=== PATIENT | female | born 1980 | race American Indian/Alaskan Native ===

== ENCOUNTER 2017-04-22 13:31 | Outpatient (CLI) | payer OTHER ==
--- NOTE | 2017-04-22 15:54 | Mammography Report ---
BILATERAL DIGITAL DIAGNOSTIC MAMMOGRAM with CAD: 04/22/17 13:31:00 CLINICAL: Right breast lump. COMPARISON:None. FINDINGS: The breasts are heterogeneously dense, which may obscures small masses.No mass, architectural distortion or suspicious calcifications. No mammographic finding at a right areolar palpable marker in the lower inner quadrant. According to Dr. Ng, she has identified a right subareolar mass for biopsy. IMPRESSION: Negative mammogram but a suspicious palpable mass based on Dr. Ng's ultrasound. BI-RADS CATEGORY: 4--Suspicious RECOMMENDATION: Ultrasound guided right needle breast biopsy. ACR BI-RADS MAMMOGRAPHIC CODES: 0 = Needs additional imaging evaluation; 1 = Negative; 2 = Benign; 3 = Probably benign; 4 = Suspicious; 5 = Malignant; 6 = Known biopsy-proven malignancy COMMENT: 1. Dense breast tissue, i.e., adenosis, fibrocystic changes, etc., may obscure an underlying neoplasm. 2. Approximately 10% of cancers are not detected with mammography. 3. A negative mammography report should not delay biopsy if a clinically suspicious mass is present. COMMENT: Patient follow-up letters are generated by our Split application.
== END 2017-04-22 13:32 | disposition home or self-care (01) ==
LOC: SPVWC 13:31
PROVIDERS: ATTEND Surgery
DX: N63 Unspecified lump in breast (principal)
CPT/HCPCS: 77066; G0204

== ENCOUNTER 2017-04-23 08:36 | Outpatient (CLI) | payer OTHER | END 2017-04-23 08:37 | disposition home or self-care (01) | LOC: LABHHL 08:36 | PROVIDERS: ATTEND Surgery | DX: N64.1 Fat necrosis of breast (principal); N61.0 Mastitis without abscess; N63 Unspecified lump in breast | CPT/HCPCS: 88305 ==